=== PATIENT | female | born 1965 | race Caucasian/White ===

== ENCOUNTER 2017-05-08 08:16 | Emergency (ER) | payer BC ==
[~2017-05-08] VITALS: Ht 162.6 cm; Wt 88.8 kg
[~2017-05-08 08:16] MED LIST: CLARITIN10 M3 PO; Ecotrin PO; MOTRIN600 MG PO; MOTRIN800 MG PO; ULTRACET1 TABLET PO; VIBRAMYCIN100 MG PO
[2017-05-08 08:49] LABS: BASOPHIL (%) 0.5 % (0-1); EOSINOPHIL (%) 2.9 % (0-5); EOSINOPHIL COUNT 0.2 K/uL (0-0.3); HEMATOCRIT 42.4 % (36.0-46.0); HEMOGLOBIN 14.6 G/DL (11.9-15.5); IMMATURE GRANULOCYTE (%) 0.2 % (0.0-0.7); LYMPHOCYTE (%) 29.3 % (15-42); LYMPHOCYTE COUNT 1.6 K/uL (1.0-2.8); MCH 30.7 PG (29.0-34.0); MCHC 34.4 G/DL (30.0-36.0); MCV 89.3 FL (83-99); MONOCYTE (%) 11.6 % (3-12); MONOCYTE COUNT 0.6 K/uL (0-0.8); NEUTROPHIL (%) 55.5 % (45-76); NEUTROPHIL COUNT 3.1 K/uL (1.8-6.4); PLATELET COUNT 290 K/uL (156-360); RBC DIS.WIDTH-SD 42.6 % (39-53); RED BLOOD COUNT 4.75 M/uL (3.80-5.20); WHITE BLOOD COUNT 5.5 K/uL (4.1-10.2)
[2017-05-08 09:01] LABS: CHLORIDE 106 mEq/L (99-109); POTASSIUM 3.9 mEq/L (3.7-5.4); SODIUM 140 mEq/L (136-147)
[2017-05-08 09:03] LABS: GLUCOSE 95 mg/dL (70-99)
[2017-05-08 09:06] LABS: CREATININE 0.8 mg/dL (0.6-1.3); GFR ESTIMATE (CALCULATED) > 59 mL/min/
[2017-05-08 09:07] LABS: UREA NITROGEN (BUN) 9 mg/dL (9-23)
[2017-05-08] MEDS ORDERED: MOTRIN800 MG PO (10:50)
[2017-05-08 11:05] VITALS: BP 109/81
== END 2017-05-08 11:05 | disposition home or self-care (01) ==
LOC: EME 08:16
PROVIDERS: Emergency Medicine
DX: M79.605 Pain in left leg (principal); M79.1 Myalgia; F17.200 Nicotine dependence, unspecified, uncomplicated; Z79.82 Long term (current) use of aspirin; Z98.890 Other specified postprocedural states; Z88.5 Allergy status to narcotic agent
CPT/HCPCS: 80048; 85025; 85610; 93971; 99281; 99283